=== PATIENT | female | born 1995 | race Hispanic/Latino ===

== ENCOUNTER 2021-11-27 03:42 | Day surgery (SDC) | payer MEDICAID, OTHER ==
[2021-11-27] MEDS ORDERED: Morphine 4 MG/ML VIAL ONE (05:30)
[2021-11-27] MEDS ORDERED: Ondansetron PF 4 MG/2 ML Vial ONE ×2 (05:30→09:20)
[2021-11-27] MEDS ORDERED: HYDROmorphone 0.5 MG/0.5 ML SYRINGE ONE (07:37)
[2021-11-27] MEDS ORDERED: fentaNYL Citrate/PF 100 MCG/2 ML SYRINGE ONE ×2 (07:37→08:52)
[2021-11-27] MEDS ORDERED: Dexmedetomidine 200 MCG/2 ML VIAL ONE (07:38)
[2021-11-27] MEDS ORDERED: Bupivacaine/Epinephrine 0.25% 30 ML VIAL ONE (07:39)
[2021-11-27 07:41] LABS: SARS-CoV-2 NAA Rapid Test Not Detected (NotDetected)
[2021-11-27] MEDS ORDERED: Famotidine/PF 20 mg/2ml Vial ONE (08:49)
[2021-11-27] MEDS ORDERED: PROPOFOL 200 MG/20 ML VIAL ONE (09:20)
[2021-11-27] MEDS ORDERED: Lidocaine 1% PF 5 ML VIAL ONE (09:20)
[2021-11-27] MEDS ORDERED: Neostigmine Methylsulfate 3 MG/3 ML SYRINGE ONE (09:20)
[2021-11-27] MEDS ORDERED: Ketorolac Tromethamine 30 MG/ML VIAL ONE (09:20)
[2021-11-27] MEDS ORDERED: Glycopyrrolate 0.2 MG/ML 5 ML SYRINGE ONE (09:20)
[2021-11-27] MEDS ORDERED: Succinylcholine 200 MG/10 ml SYRINGE FS ONE (09:20)
[2021-11-27] MEDS ORDERED: Dexamethasone 20 MG/5 ML VIAL ONE (09:20)
[2021-11-27] MEDS ORDERED: Rocuronium Bromide 10 MG/ML (10ML VIAL) ONE (09:20)
[2021-11-27] MEDS ORDERED: ePHEDrine 50 MG/ML VIAL ONE (09:20)
[2021-11-27] MEDS ORDERED: Metoclopramide HCl 10 MG/2 ML VIAL ONE (09:20)
[2021-11-27] MEDS ORDERED: Promethazine HCl 25 MG/ML VIAL IVPB PRN (10:31)
[2021-11-27] MEDS ORDERED: PACU-Morphine 4MG/ML VIAL SLOW IVP PRN (10:31)
[2021-11-27] MEDS ORDERED: Ondansetron HCl/PF 4 MG/2 ML Vial IVP PRN (10:31)
[2021-11-27] MEDS ORDERED: Promethazine HCl 25 MG/ML VIAL IM PRN (10:31)
[2021-11-27] MEDS ORDERED: Fentanyl 100 MCG/2 ML VIAL ONE (10:31)
== END 2021-11-27 11:40 | disposition home or self-care (01) ==
LOC: ERS 04:06 → SDC 08:28
PROVIDERS: ATTEND Specialist
PROC: 0FT44ZZ Resection of Gallbladder, Percutaneous Endoscopic Approach (ICD-10-PCS; principal; 2021-11-27)
DX: K81.2 Acute cholecystitis with chronic cholecystitis (principal); K82.8 Other specified diseases of gallbladder; Z20.822 Contact with and (suspected) exposure to COVID-19
CPT/HCPCS: 76705; 88304; C1713; J1100; J1170; J1885; J1956; J2270; J2405; J2704; J2765; J3010; J3490; S0028; U0002